=== PATIENT | female | born 1990 | race Caucasian/White ===

== ENCOUNTER 2017-11-10 05:27 | Inpatient (IN) | payer BC ==
[2017-11-10] MEDS ORDERED: LR 1,000 ML IV PRN (06:29)
[2017-11-10] MEDS ORDERED: CITRIC ACID/SODIUM CITRATE 30 ML UDCUP PO ONE (06:42)
[2017-11-10] MEDS ORDERED: LR 500 ML IV ONE (06:42)
[2017-11-10] MEDS ORDERED: ceFAZolin 2 GM/DEXTROSE 100 ML IV ONE (06:42)
[2017-11-10 06:48] LABS: PLATELET COUNT 167 10^3/uL (150-400)
[2017-11-10] MEDS ORDERED: ceFAZolin 2 GM/SWFI 2 GM/20 ML SYR IVP ONE (07:00)
[2017-11-10] MEDS ORDERED: OXYTOCIN 100 UNITS/10 ML VIAL ONE (07:21)
[2017-11-10] MEDS ORDERED: BUPIVACAINE/DEXTROSE 7.5MG/ML 2 ML SPINAL AMP SP ONE (07:21)
[2017-11-10] MEDS ORDERED: fentaNYL 100 MCG/2 ML INJ ONE (07:22)
[2017-11-10] MEDS ORDERED: ONDANSETRON 4 MG/2 ML VIAL ONE (07:23)
[2017-11-10] MEDS ORDERED: morphINE PF 5 MG/10 ML INJ ONE (07:23)
--- NOTE | 2017-11-10 07:34 | PREANESOB ---
Obstetric Pre-Anesthesia Info - General Info Proposed Procedure: cs NPO Start Time: 00:00 : 2 Para: 1 RAFI: 11/15/17 Gestational Age: 39 week(s) and 2 day(s) - Info Status: Full Term Monitors: External FHR Pattern: Reassuring - Labor Status Indications for Current Section: Elective/Repeat Labor Epidural: No Anesthesia ROS: negative ros Allergies/Adverse Reactions: Allergy/AdvReac Type Severity Reaction Status Date / Time No Known Allergies Allergy Unverified 07/12/11 14:59 Home Medications: Medication Instructions Recorded NK [No Known Home Meds] 02/08/16 Visit Medications: Generic Name Dose Route Start Last Admin Trade Name Freq PRN Reason Stop Dose Admin Lactated Ringer's 1,000 mls @ 0 mls/hr 11/10/17 06:29 Lr IV 11/11/17 06:28 PRN PRN SEE PROTOCOL CONDITIONS Protocol Per Protocol Discontinued Medications Generic Name Dose Route Start Last Admin Trade Name Freq PRN Reason Stop Dose Admin Bupivacaine HCl/Dextrose Confirm 11/10/17 07:21 Marcaine Spinal Administered 11/10/17 07:22 Dose 2 ml SP .STK-MED ONE Citric Acid/Sodium Citrate 30 ml 11/10/17 06:42 Bicitra PO 11/10/17 06:43 ONCALL ONE Fentanyl Confirm 11/10/17 07:22 Sublimaze Administered 11/10/17 07:23 Dose 100 mcg .ROUTE .STK-MED ONE Lactated Ringer's 500 mls @ 0 mls/hr 11/10/17 06:42 Lr IV 11/10/17 06:43 ONCE ONE As Directed Cefazolin Sodium 2 gm in 20 mls @ 200 mls/hr 11/10/17 07:00 Cefazolin Syringe IVP 11/10/17 07:05 ONCALL ONE Morphine Sulfate Confirm 11/10/17 07:23 Morphine Pf 5 Mg/10 Ml Administered 11/10/17 07:24 Dose 5 mg .ROUTE .STK-MED ONE Ondansetron HCl Confirm 11/10/17 07:23 Zofran Administered 11/10/17 07:24 Dose 4 mg .ROUTE .STK-MED ONE Oxytocin Confirm 11/10/17 07:21 Pitocin Administered 11/10/17 07:22 Dose 100 units .ROUTE .STK-MED ONE - Anesthesia History Response to Local Anesthetics: Normal Anesthesia & Operative History: No Prior Problems Family Anesthesia History: Negative - Social History Substance Use/Abuse: Denies - Vital Signs Latest Vital Signs (Nursing): Temp Pulse Resp BP Pulse Ox 36.8 C 16 110/69 100 11/10/17 06:12 11/10/17 06:12 11/10/17 06:12 11/10/17 06:12 Height/Weight (Nursing): Height 167.64 cm Weight 106.231 kg - Focused Exam Neck exam: FROM Mallampati Score: Class 2 Mouth exam: normal dental/mouth exam Pulmonary: no respiratory distress Cardiovascular: regular rate and rhythym Labs: 11/10/17 06:40 Patient ABO/Rh A POSITIVE 11/10/17 06:40 - Plan Anesthetic Plan: sab Consent Signed and on Chart: Yes Patient/Guardian Understands and Agrees to Plan: Yes
--- NOTE | 2017-11-10 07:34 | PDGENHP ---
History and Physical - Chief Complaint Scheduled RLTCS and BTL - History of Present Illness 27 yo today at 39w2d by RAFI of 11/15/17 - presents for scheduled RLTCS and tubal. First section was for indications - long labor with difficultly with epidural and pain control. Poor pain control during prior section as well unfortunately. Discussed for this but declines, and would also like tubal. Many conversations re this and her age - she's aware this is permanent and quite sure she'd like that. Otherwise uncomplicated second . A pos, Rubella immune. GBS collected in case - negative. History Information - Allergies/Home Medication List Allergies/Adverse Reactions: No Known Allergies Allergy (Unverified 07/12/11 14:59) Home Medications: NK [No Known Home Meds] 02/08/16 [Last Taken Unknown] I have personally reviewed and updated: family history, medical history, social history, surgical history - Past Medical History no pertinent PMH - Surgical History Additional surgical history: H/o prior - Social History Smoking Status: Never smoked Review of Systems Review of Systems: ROS: 10pt was reviewed & negative except for what was stated in HPI & below Physical Exam Physical Exam: Temp Pulse Resp BP Pulse Ox 36.8 C 16 110/69 100 11/10/17 06:12 11/10/17 06:12 11/10/17 06:12 11/10/17 06:12 Lab Data & Imaging Review 11/10/17 06:40 WBC 6.72 10^3/uL (3.80-9.50) 11/10/17 06:40 RBC 4.36 10^6/uL (4.18-5.33) 11/10/17 06:40 Hgb 12.6 g/dL (12.6-16.3) 11/10/17 06:40 Hct 37.4 % (38.0-47.0) L 11/10/17 06:40 MCV 85.8 fL (81.5-99.8) 11/10/17 06:40 MCH 28.9 pg (27.9-34.1) 11/10/17 06:40 MCHC 33.7 g/dL (32.4-36.7) 11/10/17 06:40 RDW 14.6 % (11.5-15.2) 11/10/17 06:40 Plt Count 167 10^3/uL (150-400) 11/10/17 06:40 MPV 11.4 fL (8.7-11.7) 11/10/17 06:40 Neut % (Auto) 63.2 % (39.3-74.2) 11/10/17 06:40 Lymph % (Auto) 25.3 % (15.0-45.0) 11/10/17 06:40 [place] % (Auto) 9.7 % (4.5-13.0) 11/10/17 06:40 Eos % (Auto) 1.0 % (0.6-7.6) 11/10/17 06:40 Baso % (Auto) 0.4 % (0.3-1.7) 11/10/17 06:40 Nucleat RBC Rel Count 0.0 % (0.0-0.2) 11/10/17 06:40 Absolute Neuts (auto) 4.24 10^3/uL (1.70-6.50) 11/10/17 06:40 Absolute Lymphs (auto) 1.70 10^3/uL (1.00-3.00) 11/10/17 06:40 Absolute Monos (auto) 0.65 10^3/uL (0.30-0.80) 11/10/17 06:40 Absolute Eos (auto) 0.07 10^3/uL (0.03-0.40) 11/10/17 06:40 Absolute Basos (auto) 0.03 10^3/uL (0.02-0.10) 11/10/17 06:40 Absolute Nucleated RBC 0.00 10^3/uL (0-0.01) 11/10/17 06:40 Immature Gran % 0.4 % (0.0-1.1) 11/10/17 06:40 Immature Gran # 0.03 10^3/uL (0.00-0.10) 11/10/17 06:40 Patient ABO/Rh A POSITIVE 11/10/17 06:40 Antibody Screen NEGATIVE 11/10/17 06:40 Assessment & Plan Assessment: 27 yo are 39w2d here for scheduled RLTCS and BTL. - Routine preop orders, 2grams Ancef. - No home meds to continue. - A pos, Rubella immune. JM
[2017-11-10] MEDS ORDERED: MISOPROSTOL 200 MCG TAB ONE (07:57)
[2017-11-10] MEDS ORDERED: AMMONIA AROMATIC 1 EACH AMP IH ONE (07:57)
[2017-11-10] MEDS ORDERED: LR 1,000 ML IV SCH (08:00)
[2017-11-10] MEDS ORDERED: NALOXONE HCL 0.4 MG/ML INJ IVP PRN ×2 (09:43)
[2017-11-10] MEDS ORDERED: HYDROmorphONE/DILAUDID 1 MG/ML INJ IVP PRN (09:43)
[2017-11-10] MEDS ORDERED: fentaNYL 100 MCG/2 ML INJ IVP PRN (09:43)
[2017-11-10] MEDS ORDERED: ONDANSETRON 4 MG/2 ML VIAL IVP PRN ×2 (09:43)
[2017-11-10] MEDS ORDERED: MEPERIDINE 25 MG/0.5 ML AMP IVP PRN (09:43)
[2017-11-10] MEDS ORDERED: HYDROCODONE/APAP 5/325 TAB PO PRN (09:43)
[2017-11-10] MEDS ORDERED: PHENYLEPHRINE HCL 100 MCG/ML SYR IVP PRN (09:43)
--- NOTE | 2017-11-10 09:46 | POSTANESTH ---
Post Anesthetic Evaluation Cardiovascular Status: Normal, Stable Respiratory Status: Normal, Stable Level of Consciousness/Mental Status: Can Participate in Eval Pain Control: Adequate, Prn Tx Ordered Nausea/Vomiting Control: Adequate, Prn Tx Ordered Complications Possibly Related to Anesthesia: None Noted
[2017-11-10] MEDS ORDERED: MAGNESIUM HYDROXIDE 30 ML UDCUP PO PRN (12:32)
[2017-11-10] MEDS ORDERED: SIMETHICONE 80 MG TAB CHEW PO PRN (12:32)
[2017-11-10] MEDS ORDERED: BISACODYL 10 MG SUPP PR PRN (12:32)
[2017-11-10] MEDS ORDERED: POLYETHYLENE GLYCOL 3350 17 GM PKT PO PRN (12:32)
[2017-11-10] MEDS ORDERED: PROMETHAZINE HCL 25 MG/ML INJ IVP PRN (12:32)
[2017-11-10] MEDS ORDERED: ACETAMINOPHEN 325 MG TAB PO PRN (12:32)
[2017-11-10] MEDS ORDERED: LACTULOSE 20 GM/30 ML UDCUP PO PRN (12:32)
[2017-11-10] MEDS ORDERED: DOCUSATE SODIUM 100 MG CAP PO PRN (12:32)
--- NOTE | 2017-11-10 12:39 | POSTOPPROG ---
Post Op Note Date of Operation: 11/10/17 Surgeon: Geo Kelly Credentialing Specialist: Kisha Osei MD Anesthesiologist: Milton Johansen MD Anesthesia: Spinal Pre-op Diagnosis: Scheduled RLTCS and BTL Post-op Diagnosis: Same Procedure: Scheduled RLTCS and BTL Findings: Normal uterus, normal tubes and ovaries bilaterally Inf/Abcess present in the surg proc area at time of surgery?: No EBL: 700cc Complications: None Specimen(s): Placenta not sent to path, cord blood gasses not sent.
[2017-11-10] MEDS: KETOROLAC 30 MG/1 ML SDV IVP SCH ×2 (13:18→19:15)
[2017-11-10] MEDS: SENNOSIDES/DOCUSATE SODIUM TAB PO SCH (19:15)
--- NOTE | 2017-11-10 20:59 | OBPP ---
Progress Note Assessment/Plan: Assessment: pod# 0 s/p RLTCS with bilateral salpingectomy breast feeding Plan: routine post and post operative care 11/10/17 20:57 Subjective/ Course: 11/10/17 20:58 patient is doing great. pain is well controlled. normal lochia. denies headache and changes in vision. breast feeding is going well. ambulating in room. Objective: 11/10/17 06:40 Patient ABO/Rh A POSITIVE 11/10/17 06:40 Temp Pulse Resp BP Pulse Ox 36.8 C 92 16 105/66 96 11/10/17 20:06 11/10/17 20:06 11/10/17 20:06 11/10/17 20:06 11/10/17 20:06 Physical Exam - Physical Exam Neck: non-tender, full range of motion, supple Respiratory: chest non-tender, lungs clear, normal breath sounds Cardiac/Chest: normal peripheral pulses, regular rate, rhythm Abdomen: normal bowel sounds, non-tender Extremities: normal range of motion, non-tender, normal inspection, normal capillary refill Skin: normal color, warm/dry Neuro/Psych: no motor/sensory deficits, alert, normal mood/affect, oriented x 3
[2017-11-11] MEDS: KETOROLAC 30 MG/1 ML SDV IVP SCH ×2 (01:17→07:19)
--- NOTE | 2017-11-11 11:01 | OBPP ---
Progress Note Assessment/Plan: Assessment: 27 y/o s/p repeat LTCS with BTL at 39.2 weeks ega POD #1 Plan: Routine post /post op care. Encourage activity/ambulation today 11/11/17 10:58 Subjective/ Course: 11/10/17 20:58 patient is doing great. pain is well controlled. normal lochia. denies headache and changes in vision. breast feeding is going well. ambulating in room. 11/11/17 10:59 Doing well today. Feels good. Pain well controlled with ibuprofen, going well. Tolerating diet and voiding. Ambulating in room/to bathroom Objective: 11/11/17 03:50 Patient ABO/Rh A POSITIVE 11/10/17 06:40 Temp Pulse Resp BP Pulse Ox 36.1 C 88 18 102/68 94 11/11/17 08:00 11/11/17 08:00 11/11/17 08:00 11/11/17 08:00 11/11/17 08:00 Uterine Position/Fundal Height: At Umbilicus Uterine Tone: Firm Physical Exam - Physical Exam EENT: PERRL/EOMI, normal ENT inspection Neck: non-tender, full range of motion, supple Respiratory: chest non-tender, normal breath sounds Cardiac/Chest: normal peripheral pulses, edema (small) Abdomen: hypoactive bowel sounds, flatus, dressing (dry/intact) Extremities: normal range of motion, non-tender Back: Normal inspection Skin: normal color, warm/dry Neuro/Psych: no motor/sensory deficits, alert, normal mood/affect, oriented x 3
[2017-11-11] MEDS: FERROUS SULFATE 325 MG TAB PO SCH (11:27)
[2017-11-11] MEDS: SENNOSIDES/DOCUSATE SODIUM TAB PO SCH ×2 (11:27→20:59)
[2017-11-11] MEDS: IBUPROFEN 600 MG TAB PO PRN ×2 (13:19→19:20)
[2017-11-11] MEDS: HYDROCODONE/APAP 5/325 TAB PO PRN ×2 (15:33→20:59)
[2017-11-12] MEDS: IBUPROFEN 600 MG TAB PO PRN ×2 (01:26→08:42)
[2017-11-12 08:31] VITALS: BP 117/82
[2017-11-12] MEDS: SENNOSIDES/DOCUSATE SODIUM TAB PO SCH (08:42)
[2017-11-12] MEDS: FERROUS SULFATE 325 MG TAB PO SCH (08:42)
--- NOTE | 2017-11-12 10:53 | OBPP ---
Progress Note Assessment/Plan: Assessment: 1) s/p repeat LTCS with BTL POD # 2 - pt is stable 2) Anemia - pt is asymptomatic Plan: Plan for d/c home today Instructions reviewed with pt Rx given for Motrin Cont PNV, iron and colace Pelvic rest RTC in 2, 4 and 6 weeks for pp check 11/12/17 10:49 Subjective/ Course: 11/10/17 20:58 patient is doing great. pain is well controlled. normal lochia. denies headache and changes in vision. breast feeding is going well. ambulating in room. 11/11/17 10:59 Doing well today. Feels good. Pain well controlled with ibuprofen, going well. Tolerating diet and voiding. Ambulating in room/to bathroom 11/12/17 10:51 Pt seen and examined. Doing well with no complaints. Pain is well controlled with just Motrin. Mod lochia. Pt is OOB, danuta regular diet, voiding and passing flatus. NO BM yet. Denies any f/c/n/v/CP or SOB. BF well without difficulty. Ready to go home today. Objective: 11/11/17 03:50 Patient ABO/Rh A POSITIVE 11/10/17 06:40 Temp Pulse Resp BP Pulse Ox 36.6 C 95 16 117/82 H 96 11/12/17 08:10 11/12/17 08:10 11/12/17 08:10 11/12/17 08:10 11/12/17 08:10 Uterine Position/Fundal Height: Umbilicus -2 Uterine Tone: Firm Physical Exam - Physical Exam Respiratory: lungs clear, normal breath sounds Cardiac/Chest: regular rate, rhythm Abdomen: normal bowel sounds, non-tender, soft, flatus (+), incision (C/D/I, well approximated) Extremities: non-tender, normal inspection Skin: normal color, warm/dry Neuro/Psych: alert, normal mood/affect, oriented x 3
--- NOTE | 2017-11-12 10:54 | OBGCSDC ---
General Delivery Information - General Info : 2 Para: 2 Abortions: 0 L&D Analgesia/Anesthesia Type: Spinal Admission Date: 11/10/17 Labs: Patient ABO/Rh A POSITIVE 11/10/17 06:40 Hct 34.5 % (38.0-47.0) L 11/11/17 03:50 - Hospital Course : 11/10/17 20:58 patient is doing great. pain is well controlled. normal lochia. denies headache and changes in vision. breast feeding is going well. ambulating in room. 11/11/17 10:59 Doing well today. Feels good. Pain well controlled with ibuprofen, going well. Tolerating diet and voiding. Ambulating in room/to bathroom 11/12/17 10:51 Pt seen and examined. Doing well with no complaints. Pain is well controlled with just Motrin. Mod lochia. Pt is OOB, danuta regular diet, voiding and passing flatus. NO BM yet. Denies any f/c/n/v/CP or SOB. BF well without difficulty. Ready to go home today. - Delivery Providers Surgeon: Geo Kelly - Delivery Indications for Current Section: Elective/Repeat Data RAFI: 11/15/17 Gestational Age: 39 week(s) and 4 day(s) [place] Delivery Date: 11/10/17 Delivery Time: 08:39 Sex of : Female Weight (gm): 3464 g Score (1 Min): 8 Score (5 Min): 9 Discharge Information - Discharge Information Condition: Good Instruction/Follow Up: Two Weeks, Four Weeks, Six Weeks
--- NOTE | 2017-11-12 17:39 | SUROPNOTE ---
[facility] Operative Report - Surgery Date of Operation: 11/10/17 Surgeon: Geo Kelly Regulatory Compliance Director: Kisha Osei MD Anesthesiologist: Milton Johansen MD Anesthesia: Spinal Pre-op Diagnosis: Scheduled RLTCS and BTL Post-op Diagnosis: Same Procedure: Scheduled RLTCS and BTL Findings: Normal uterus, normal tubes and ovaries bilaterally Inf/Abcess present in the surg proc area at time of surgery?: No EBL: 700cc Complications: None Specimen(s): Placenta not sent to path, cord blood gasses not sent. Technique: The patient was taken to the OR where spinal was placed and anesthesia found to be adequate. The patient was then positioned supine with a leftward tilt and a time-out was performed. She was given weight-based antibiotics prior to skin incision. The abdomen was prepped and draped in normal sterile fashion. A Pfannenstiel skin incision was made with the scalpel and carried down to the fascia. Her prior transverse scar was excised prior to that dissection. The fascia was incised in the midline and the incision extended bilaterally sharply with scissors. The fascia was dissected off of the underlying rectus muscles superiorly and inferiorly also sharply using scissors. The rectus were in the midline and the peritoneum identified and entered bluntly without issue. Minimal adhesions encountered as described in findings. The peritoneal incision was extended and the bladder blade was then placed. The vesicouterine junction was identified and a bladder flap created sharply and developed bluntly. A transverse incision was made with the scalpel in the lower uterine segment and extended with cephalad and caudad traction on the incision edges. The head was encountered and easily elevated out of the pelvis and delivered atraumatically, followed by the shoulders and body. The nose and mouth were bulb suctioned. We did wait for 60 seconds before clamping and cutting the cord and then the was handed to pediatric staff. Cord blood gases were not sent and the placenta was not sent to pathology. The uterus was then exteriorized and carefully wiped of all debris. The uterus was closed in two layers - the first layer was running with 180 0-vloc and the second a vertical imbricating layer using 0-vicryl. The gutters were cleared of all clots. The uterine incision was re-inspected and found to be hemostatic after placement of additional figure of eight sutures of 3-0 vicryl. Next we did perform bilateral tubal ligation - to do this we grasped each tube with a [place] and tied off a loop of isthmic portion of the tube with two sutures of 0 -chromic and then excised the generated loop of tube. The tubal ends were cauterized with the bovie and the tube segments sent for path. On the right tube our sutures did release from their original position so single sutures of 3 -0 vicryl were used to control now-seperate end - as in the [place] method. The uterus was then returned to the abdomen. The fascia was elevated and the rectus muscles and subcutaneous tissues were found to be hemostatic. The fascia was closed with a running 0-Vicryl - single suture. The subcutaneous tissues were irrigated and hemostasis obtained. The subcutaneous space was closed with interrupted sutures of 2-0 vicryl. The skin was closed with 4-0 vloc undyed and then covered with Medipore dressing. The patient tolerated the procedure and was taken to recovery in stable condition. Lap, needle, sponge, and instrument count were announced as correct times two. I was present and scrubbed for the entire case.
== END 2017-11-12 11:30 | disposition home or self-care (01) | DRG 766 ==
LOC: FLD 05:27 → FOB 11:45
PROVIDERS: ADMIT Obstetrics & Gynecology; ATTEND Obstetrics & Gynecology
DX: O34.211 Maternal care for low transverse scar from previous cesarean delivery (principal); Z30.2 Encounter for sterilization; Z3A.39 39 weeks gestation of pregnancy; Z37.0 Single live birth
CPT/HCPCS: J0690; J1885; J2274; J2405; J2590; J3010